=== PATIENT | female | born 1940 | race Hispanic/Latino ===

== ENCOUNTER 2018-02-26 07:15 | Day surgery (SDC) | payer MEDICARE ==
--- OUTSIDE RECORDS SUMMARY | 2018-02-26 07:28 | XMS REPORT | Clinical Summary ---
:1940 Author Organization [facility] Address [address] [place] [address] Care Team Providers Name Role Phone Dionte Tomas MD Primary Care Provider Allergies No Known Allergies Current Medications Prescription Sig. Disp. Refills Start Date End Date Status levothyroxine Take 175 mcg by Active (SYNTHROID, LEVOXYL) 175 mouth every mcg tablet morning. metFORMIN XR Take 500 mg by Active (GLUCOPHAGE-XR) 500 mg mouth daily 24 hr tablet before dinner. pantoprazole (PROTONIX) Take 40 mg by Active 40 MG EC tablet mouth daily. losartan-hydrochlorothia Take 1 tablet Active zide (HYZAAR) 100-25 mg by mouth daily. per tablet verapamil extended Take 200 mg by Active release (VERELAN PM) 200 mouth daily. At mg capsule, 24 hr ER 6pm pellet CT ER capsule sertraline (ZOLOFT) 100 Take 100 mg by Active MG tablet mouth daily. cyanocobalamin 500 MCG Take 500 mcg by Active tablet mouth daily. potassium chloride Take 8 mEq by Active (MICRO-K) 8 mEq CR mouth daily. At capsule 6pm estradiol (ESTRACE) 0.5 Take 0.5 mg by Active MG tablet mouth daily. At 6pm loperamide (IMODIUM) 2 Take 1 capsule 30 capsule 0 08/18/2017 mg capsule (2 mg total) by 8 mouth 4 (four) times a day as needed for diarrhea for up to 15 days. albuterol (PROAIR Inhale 1-2 1 Inhaler 0 08/18/2017 HFA,PROVENTIL puffs every 6 8 HFA,VENTOLIN HFA) 90 (six) hours as mcg/actuation inhaler needed for wheezing for up to 30 days. methylPREDNISolone follow package 21 tablet 0 08/18/2017 (MEDROL DOSEPAK) 4 mg directions 8 tablet Active Problems Not on file Encounters Date Type Specialty Care Team Description 08/18/2017 Emergency Emergency Medicine Josh Woodson Recinos, Viral syndrome ( Primary Dx); Diarrhea, unspecified type after 02/25/2017 Social History Tobacco Use Types Packs/Day Years Used Date Never Smoker Alcohol Use Drinks/Week oz/Week Comments No Sex Assigned at Date Recorded Not on file Last Filed Vital Signs Vital Sign Reading Time Taken Blood Pressure 142/66 08/18/2017 5:15 PM CLINICAL RADIOLOGIST Pulse 100 08/18/2017 5:15 PM CLINICAL RADIOLOGIST Temperature 36.7 C (98 F) 08/18/2017 12:35 PM CLINICAL RADIOLOGIST Respiratory Rate 18 08/18/2017 5:15 PM CLINICAL RADIOLOGIST Oxygen Saturation 98% 08/18/2017 5:15 PM CLINICAL RADIOLOGIST Inhaled Oxygen Concentration - - Weight - - Height 165.1 cm (5' 5") 08/18/2017 12:38 PM CLINICAL RADIOLOGIST Body Mass Index - - Plan of Treatment Health Maintenance Due Date Last Done Comments SHINGRIX VACCINE (#1) 1990 ZOSTER VACCINE 2000 PNEUMOCOCCAL POLYSACCHARIDE VACCINE AGE 65 AND OVER 2005 PNEUMOCOCCAL-13 2005 INFLUENZA VACCINE 02/28/2018 Procedures Procedure Name Priority Date/Time Associated Comments Diagnosis XR CHEST 2 VW STAT 08/18/2017 3:06 Results for this PM CLINICAL RADIOLOGIST procedure are in the results section. BLOOD CULTURE, Routine 08/18/2017 2:48 Results for this AEROBIC & ANAEROBIC PM CLINICAL RADIOLOGIST procedure are in the results section. RESPIRATORY PATHOGEN Routine 08/18/2017 2:47 Results for this PANEL PM CLINICAL RADIOLOGIST procedure are in the results section. INFLUENZA ANTIGEN Routine 08/18/2017 2:47 Results for this PM CLINICAL RADIOLOGIST procedure are in the results section. BLOOD CULTURE, Routine 08/18/2017 2:45 Results for this AEROBIC & ANAEROBIC PM CLINICAL RADIOLOGIST procedure are in the results section. ESTIMATED GFR STAT 08/18/2017 2:18 Results for this PM CLINICAL RADIOLOGIST procedure are in the results section. LIPASE LEVEL STAT 08/18/2017 2:18 Results for this PM CLINICAL RADIOLOGIST procedure are in the results section. AMYLASE LEVEL STAT 08/18/2017 2:18 Results for this PM CLINICAL RADIOLOGIST procedure are in the results section. LACTIC ACID LEVEL, STAT 08/18/2017 2:18 Results for this SEPSIS - NOW AND PM CLINICAL RADIOLOGIST procedure are in REPEAT 2X EVERY 3 the results HOURS section. HEPATIC FUNCTION STAT 08/18/2017 2:18 Results for this PANEL PM CLINICAL RADIOLOGIST procedure are in the results section. BASIC METABOLIC PANEL STAT 08/18/2017 2:18 Results for this PM CLINICAL RADIOLOGIST procedure are in the results section. HC COMPLETE BLD COUNT STAT 08/18/2017 2:18 Results for this W/AUTO DIFF PM CLINICAL RADIOLOGIST procedure are in the results section. after 02/25/2017 Results XR Chest 2 Vw (08/18/2017 3:06 PM) Narrative Performed At EXAMINATION:[facility] CLINICAL HISTORY:Cough, Fever COMPARISON:11/12/2001 TECHNIQUE: Frontal and lateral views of the chest obtained. IMPRESSION: Cardiac silhouette upper normal. Pulmonary vasculature within normal limits. Descending thoracic aorta slightly tortuous. Lungs and pleural spaces appear clear [facility]-[id number] Procedure Note Interface, Radiology Results Incoming - 08/18/2017 3:12 PM CLINICAL RADIOLOGIST EXAMINATION: XR CHEST 2 VW CLINICAL HISTORY: Cough, Fever COMPARISON: 11/12/2001 TECHNIQUE: Frontal and lateral views of the chest obtained. IMPRESSION: Cardiac silhouette upper normal. Pulmonary vasculature within normal limits. Descending thoracic aorta slightly tortuous. Lungs and pleural spaces appear clear [facility]-[id number] Performing Organization Address [facility] Phone Number [facility] [address] [place] [address] Blood culture, aerobic & anaerobic (08/18/2017 2:48 PM)Only the most recent of2 resultswithin the time period is included. Blood culture isolate No growth after 5 days of incubation. [facility] DEPARTMENT OF Comment: PATHOLOGY AND GENOMIC Specimen Information MEDICINE Specimen Source: Blood Specimen Site: Hand, left Specimen Blood - Hand, left Performing Organization Address City/[facility]/Zipcode Phone Number [facility] DEPARTMENT OF PATHOLOGY AND [address] [place] [phone] GENOMIC MEDICINE Respiratory pathogen panel (08/18/2017 2:47 PM) Respiratory pathogen Negative for all pathogens tested: [facility] DEPARTMENT OF panel Negative for Adenovirus PATHOLOGY AND GENOMIC Negative for Coronavirus HKU1 MEDICINE Negative for Coronavirus NL63 Negative for Coronavirus 229E Negative for Coronavirus OC43 Negative for Human Metapneumovirus Negative for Rhinovirus/Enterovirus Negative for Influenza A Negative for Influenza A/H1 Negative for Influenza A/H3 Negative for Influenza A/H1-2009 Negative for Influenza B Negative for Parainfluenza Virus 1 Negative for Parainfluenza Virus 2 Negative for Parainfluenza Virus 3 Negative for Parainfluenza Virus 4 Negative for Respiratory Syncytial Virus Negative for Bordetella pertussis Negative for Chlamydophila pneumoniae Negative for Mycoplasma pneumoniae This real-time PCR assay detects the presence of nucleic acids (RNA or DNA) for the respiratory pathogens listed. A result of "Not-detected" does not exclude the possibility of the presence of one or more pathogens at concentrations less than the detectable limits of the assay. Comment: Specimen Information Specimen Source: Nares Specimen Site: Right Specimen Nares - Right Performing Organization Address [facility] Phone Number [facility] DEPARTMENT OF PATHOLOGY AND [address] [place] [address] Influenza antigen (08/18/2017 2:47 PM) Influenza antigen Negative for Influenza A/B antigen. [facility] DEPARTMENT OF PATHOLOGY Comment: AND [employer] MEDICINE Specimen Information Specimen Source: Nares Specimen Site: Right Specimen Nares - Right Performing Organization Address [facility] Phone Number [facility] DEPARTMENT OF PATHOLOGY AND [address] [place] [address] Lactic acid level, SEPSIS - Now and repeat 2x every 3 hours (08/18/2017 2:18 PM ) Lactic acid 1.3 0.5 - 2.2 mmol/L [facility] DEPARTMENT OF PATHOLOGY AND GENOMIC MEDICINE Specimen Plasma specimen Performing Organization Address [facility] Phone Number [facility] DEPARTMENT OF PATHOLOGY AND [address] [place] [address] Estimated GFR (08/18/2017 2:18 PM) GFR Non Af Amer 61 mL/min/1.73 m2 [facility] DEPARTMENT OF PATHOLOGY AND GENOMIC MEDICINE GFR Af Amer 74 mL/min/1.73 m2 [facility] DEPARTMENT OF Comment: PATHOLOGY AND GENOMIC Chronic kidney disease: <60 mL/min/1.73m2 MEDICINE Kidney failure: <15 mL/min/1.73m2 The estimated GFR is calculated from the IDMS-traceable Modification of Diet in Renal Disease Equation. The accuracy of the calculation is poor when the creatinine is normal. Calculated values >90 mL/min/1.73m2 are not reported. This equation has not been validated in children (<18 years), women, the elderly (>70 years), or ethnic groups other than Caucasians and Americans. Specimen Plasma specimen Performing Organization Address City/State/Zipcode Phone Number [facility] DEPARTMENT OF PATHOLOGY AND [address] [place] [address] GENOMIC MEDICINE CBC with platelet and differential (08/18/2017 2:18 PM) WBC 6.83 4.50 - 11.00 k/uL [facility] DEPARTMENT OF PATHOLOGY AND GENOMIC MEDICINE RBC 4.38 4.20 - 5.50 m/uL [facility] DEPARTMENT OF PATHOLOGY AND GENOMIC MEDICINE HGB 11.2 (L) 12.0 - 16.0 g/dL [facility] DEPARTMENT OF PATHOLOGY AND GENOMIC MEDICINE HCT 34.1 (L) 37.0 - 47.0 % [facility] DEPARTMENT OF PATHOLOGY AND GENOMIC MEDICINE MCV 77.9 (L) 82.0 - 100.0 fL [facility] DEPARTMENT OF PATHOLOGY AND GENOMIC MEDICINE MCH 25.6 (L) 27.0 - 34.0 pg [facility] DEPARTMENT OF PATHOLOGY AND GENOMIC MEDICINE MCHC 32.8 31.0 - 37.0 g/dL [facility] DEPARTMENT OF PATHOLOGY AND GENOMIC MEDICINE RDW - SD 41.3 37.0 - 55.0 fL [facility] DEPARTMENT OF PATHOLOGY AND GENOMIC MEDICINE MPV 9.6 8.8 - 13.2 fL [facility] DEPARTMENT OF PATHOLOGY AND GENOMIC MEDICINE Platelet count 155 150 - 400 k/uL [facility] DEPARTMENT OF PATHOLOGY AND GENOMIC MEDICINE Nucleated RBC 0.00 /100 WBC [facility] DEPARTMENT OF PATHOLOGY AND GENOMIC MEDICINE Neutrophils 65.3 39.0 - 69.0 % [facility] DEPARTMENT OF PATHOLOGY AND GENOMIC MEDICINE Lymphocytes 28.0 25.0 - 45.0 % [facility] DEPARTMENT OF PATHOLOGY AND GENOMIC MEDICINE Monocytes 5.0 0.0 - 10.0 % [facility] DEPARTMENT OF PATHOLOGY AND GENOMIC MEDICINE Eosinophils 0.4 0.0 - 5.0 % [facility] DEPARTMENT OF PATHOLOGY AND GENOMIC MEDICINE Basophils 0.3 0.0 - 1.0 % [facility] DEPARTMENT OF PATHOLOGY AND GENOMIC MEDICINE Immature granulocytes 1.0Comment: 0.0 - 1.0 % [facility] DEPARTMENT OF "Immature PATHOLOGY AND GENOMIC granulocytes" MEDICINE (promyelocytes, myelocytes, metamyelocytes) Specimen Blood Performing Organization Address City/State/Zipcode Phone Number [facility] DEPARTMENT OF PATHOLOGY AND [address] [place] [phone] [facility] MEDICINE Lipase level (08/18/2017 2:18 PM) Lipase 24 13 - 60 U/L [facility] DEPARTMENT OF PATHOLOGY AND GENOMIC MEDICINE Specimen Plasma specimen Performing Organization Address [facility] Phone Number [facility] DEPARTMENT OF PATHOLOGY AND [address] [place] [id number] [place] [address] Amylase level (08/18/2017 2:18 PM) Amylase 28 28 - 100 U/L [facility] DEPARTMENT OF PATHOLOGY AND GENOMIC MEDICINE Specimen Plasma specimen Performing Organization Address [facility] Phone Number [facility] DEPARTMENT OF PATHOLOGY AND [address] [place] [address] Hepatic function panel (08/18/2017 2:18 PM) Albumin 3.9 3.5 - 5.0 g/dL [facility] DEPARTMENT OF PATHOLOGY AND GENOMIC MEDICINE Total bilirubin 0.6 0.0 - 1.2 mg/dL [facility] DEPARTMENT OF PATHOLOGY AND GENOMIC MEDICINE Bilirubin direct <0.2 0.0 - 0.3 mg/dL [facility] DEPARTMENT OF PATHOLOGY AND GENOMIC MEDICINE Alkaline phosphatase 61 35 - 104 U/L [facility] DEPARTMENT OF PATHOLOGY AND GENOMIC MEDICINE Protein 8.3 6.3 - 8.3 g/dL [facility] DEPARTMENT OF Comment: PATHOLOGY AND GENOMIC 4.6-7.0 g/dL MEDICINE 1 week 4.4-7.6 g/dL 7 months-1year5.1-7.3 g/dL 1-2 years5.6-7.5 g/dL >3 years6.0-8.0 g/dL 18-150 6.3-8.3 g/dL ALT 26 5 - 50 U/L [facility] DEPARTMENT OF PATHOLOGY AND GENOMIC MEDICINE AST 33 10 - 35 U/L [facility] DEPARTMENT OF PATHOLOGY AND GENOMIC MEDICINE Specimen Plasma specimen Performing Organization Address [facility] Phone Number [facility] DEPARTMENT OF PATHOLOGY AND [address] [place] [address] Basic metabolic panel (08/18/2017 2:18 PM) Sodium 142 135 - 148 mEq/L [facility] DEPARTMENT OF PATHOLOGY AND GENOMIC MEDICINE Potassium 3.2 (L) 3.5 - 5.0 mEq/L [facility] DEPARTMENT OF PATHOLOGY AND GENOMIC MEDICINE Chloride 100 98 - 112 mEq/L [facility] DEPARTMENT OF PATHOLOGY AND GENOMIC MEDICINE CO2 23 (L) 24 - 31 mEq/L [facility] DEPARTMENT OF PATHOLOGY AND GENOMIC MEDICINE Anion gap 19 (H) 7 - 15 mEq/L [facility] DEPARTMENT OF PATHOLOGY Comment: AND GENOMIC [facility] Starting from October , anion gap calculation no longer incorporates potassium. Please note the change. BUN 14 8 - 23 mg/dL [facility] DEPARTMENT OF PATHOLOGY AND GENOMIC MEDICINE Creatinine 0.9 0.5 - 0.9 mg/dL [facility] DEPARTMENT OF PATHOLOGY AND GENOMIC MEDICINE Glucose 133 (H) 65 - 99 mg/dL [facility] DEPARTMENT OF PATHOLOGY AND GENOMIC MEDICINE Calcium 9.0 8.8 - 10.2 mg/dL [facility] DEPARTMENT OF PATHOLOGY AND GENOMIC MEDICINE Specimen Plasma specimen Performing Organization Address City/State/Zipcode Phone Number [facility] DEPARTMENT OF PATHOLOGY AND [address] [place] [address] [employer] [facility] after 02/25/2017 Insurance Payer Benefit Plan / Group Subscriber ID Type Phone Address [facility] MEDICARE AARP MEDICARE COMPLETE MCR xxxxxxxxx O
[2018-02-26] MEDS ORDERED: NA CHLORIDE 0.9% 500 ML ONE (07:42)
[2018-02-26] MEDS ORDERED: BUPIVACAINE 0.25% PF 10 ML VIAL ONE (07:43)
[2018-02-26] MEDS ORDERED: CYCLOPENTOLATE 1% OPTH 2 ML ONE (07:43)
[2018-02-26] MEDS ORDERED: LIDOCAINE 2% MPF 5 ML VIAL ONE (07:43)
[2018-02-26] MEDS ORDERED: PHENYLEPHRINE 10% OPTH 5ML ONE (07:43)
[2018-02-26] MEDS ORDERED: TETRACAINE HCL 0.5% 2ML OPTH ONE (07:44)
[2018-02-26] MEDS ORDERED: LIDOCAINE HCL/PF 3.5% OPTH GEL ONE (07:44)
[2018-02-26] MEDS ORDERED: NS 0.9% VIAL 10 ML ONE (08:05)
[2018-02-26] MEDS ORDERED: MOXIFLOXACIN HCL 10 DROPS/ML **OR USE OPTH ONE (08:06)
[2018-02-26] MEDS ORDERED: BALANCED SALT IRRIG PLAIN 500 ML BTL IRR ONE (08:06)
[2018-02-26] MEDS ORDERED: EPINEPHRINE/PF 1 MG/ML AMP ONE (08:06)
[2018-02-26] MEDS ORDERED: LIDOCAINE 1% MPF 2 ML AMPULE ONE (08:06)
[2018-02-26] MEDS ORDERED: DUOVISC 1 KIT OPTH ONE (08:06)
[2018-02-26] MEDS ORDERED: PHENYLEPHRINE 10% OPTH 5ML OPTH ONE ×2 (08:24→08:32)
[2018-02-26] MEDS ORDERED: CYCLOPENTOLATE 1% OPTH 2 ML OPTH ONE ×2 (08:24→08:32)
[2018-02-26] MEDS ORDERED: FENTANYL CITR 100 MCG/2 ML ONE (08:49)
[2018-02-26] MEDS ORDERED: MIDAZOLAM HCL 2 MG/2 ML INJ ONE (08:49)
--- NOTE | 2018-02-26 09:59 | P.BOP ---
Preoperative diagnosis: Nuclear sclerotic cataract OD Postoperative diagnosis: Same Primary procedure: Phacoemulsification with IOL OD Estimated blood loss: None Anesthesia: Local (Topical with anesthesia for cataract surgery) Complications: None Implants: [id number] +23.0 Transferred to: Other (Day surgery) Condition: Good
--- NOTE | 2018-02-26 14:19 | OP ---
Date of Procedure: 02/26/2018 Surgeon: Tea Viera MD Anesthesiologist: Parviz Rolon CRNA. Preoperative Diagnosis: Nuclear sclerotic cataract, right eye. Operation Performed: Phacoemulsification with intraocular lens implant, right eye. Anesthesia: Per cataract surgery. Complications: None. Description Of Procedure: In the operating room the patient was prepped and draped in the usual ster ile fashion for ophthalmic surgery. A lid speculum was placed in the right eye. Two paracentesis si claudette were made superiorly and inferiorly in the limbal cornea. Viscoat was placed in the anterior fidencio mber and a crescent blade was used to make a corneal groove and tunnel, and a keratome was used to en ter the anterior chamber. Provisc was placed in the anterior chamber and a 360 degree capsulotomy wa s performed with a cystitome. The lens was hydrodissected with BSS and rotated freely. The lens was removed with a stop and chop technique. 10.04 phaco CDE was used to remove the lens. Residual david ex was removed with the irrigation and aspiration. Provisc was placed in the capsular bag. A ZCB00 +23.0 lens was placed in the capsular bag without complications. Irrigation and aspiration was used to remove residual viscoelastic. The paracentesis sites were hydrated with BSS. The wound and parac entesis sites were inspected and found to be watertight. Vigamox 0.07 cc was placed intracamerally a t the end of the procedure. The eye was irrigated with balanced salt solution. The eye was patched with a soft cotton patch and Bridges metal shield. The patient was returned to day surgery in good condition. Comments: Akten was placed in the eye in day surgery and irrigated out of the eye with BSS in the OR . Preservative free 1% lidocaine was placed in the anterior chamber prior to viscoat. Discharge Instructions: Ms. Constantino is discharged to home with good condition and is to follow up with Dr. Viera in the morning. TONI/CONNOR Voice ID: [id number] Report ID: [id number]
== END 2018-02-26 10:44 | disposition home or self-care (01) ==
LOC: OR 07:15
PROVIDERS: ATTEND Ophthalmology Retina Specialist
PROC: 08RJ3JZ Replacement of Right Lens with Synthetic Substitute, Percutaneous Approach (ICD-10-PCS; principal; 2018-02-26 09:00)
DX: H25.11 Age-related nuclear cataract, right eye (principal); I10 Essential (primary) hypertension; E03.9 Hypothyroidism, unspecified; E11.36 Type 2 diabetes mellitus with diabetic cataract; Z79.84 Long term (current) use of oral hypoglycemic drugs
CPT/HCPCS: 36415; 66984; 82962; 84132; J0171; J2001; J2250; J3010

== ENCOUNTER 2018-05-24 11:38 | Emergency (ER) | payer MEDICARE ==
--- OUTSIDE RECORDS SUMMARY | 2018-05-24 11:40 | XMS REPORT | Clinical Summary ---
:1940 Author Organization [facility] Address [address] [place] [address] Care Team Providers Name Role Phone Dionte [...] ( Primary Dx); Diarrhea, unspecified type after 05/23/2017 Social History Tobacco Use Types Packs/Day Years Used Date Never Smoker Alcohol Use Drinks/Week oz/Week Comments No Sex Assigned at Date Recorded Not on file Last Filed Vital Signs Vital Sign Reading Time Taken Blood Pressure 142/66 08/18/2017 5:15 PM BOOKKEEPING CLERK Pulse 100 08/18/2017 5:15 PM BOOKKEEPING CLERK Temperature 36.7 C (98 F) 08/18/2017 12:35 PM BOOKKEEPING CLERK Respiratory Rate 18 08/18/2017 5:15 PM BOOKKEEPING CLERK Oxygen Saturation 98% 08/18/2017 5:15 PM BOOKKEEPING CLERK Inhaled Oxygen Concentration - - Weight - - Height 165.1 cm (5' 5") 08/18/2017 12:38 PM BOOKKEEPING CLERK Body Mass Index - - Plan of Treatment Health Maintenance Due Date Last Done Comments SHINGRIX VACCINE (#1) 1990 ZOSTER VACCINE 2000 PNEUMOCOCCAL POLYSACCHARIDE VACCINE AGE 65 AND OVER 2005 PNEUMOCOCCAL-13 2005 INFLUENZA VACCINE 02/28/2018 Procedures Procedure Name Priority Date/Time Associated Comments Diagnosis XR CHEST 2 VW STAT 08/18/2017 3:06 Results for this PM BOOKKEEPING CLERK procedure are in the results section. BLOOD CULTURE, Routine 08/18/2017 2:48 Results for this AEROBIC & ANAEROBIC PM [employer]KEEPING CLERK procedure are in the results section. RESPIRATORY PATHOGEN Routine 08/18/2017 2:47 Results for this PANEL PM BOOKKEEPING CLERK procedure are in the results section. INFLUENZA ANTIGEN Routine 08/18/2017 2:47 Results for this PM [employer]OOKKEEPING CLERK procedure are in the results section. BLOOD CULTURE, Routine 08/18/2017 2:45 Results for this AEROBIC & ANAEROBIC PM BOOKKEEPING CLERK procedure are in the results section. ZZESTIMATED GFR STAT 08/18/2017 2:18 Results for this PM [employer]OOKKEEPING CLERK procedure are in the results section. LIPASE LEVEL STAT 08/18/2017 2:18 Results for this PM [employer]OOKKEEPING CLERK procedure are in the results section. AMYLASE LEVEL STAT 08/18/2017 2:18 Results for this PM BOOKKEEPING CLERK procedure are in the results section. LACTIC ACID LEVEL, STAT 08/18/2017 2:18 Results for this SEPSIS - NOW AND PM BOOKKEEPING CLERK procedure are in REPEAT 2X EVERY 3 the results HOURS section. HEPATIC FUNCTION STAT 08/18/2017 2:18 Results for this PANEL PM BOOKKEEPING CLERK procedure are in the results section. BASIC METABOLIC PANEL STAT 08/18/2017 2:18 Results for this PM BOOKKEEPING CLERK procedure are in the results section. HC COMPLETE BLD COUNT STAT 08/18/2017 2:18 Results for this W/AUTO DIFF PM BOOKKEEPING CLERK procedure are in the results section. after 05/23/2017 Results XR Chest 2 Vw (08/18/2017 3:06 PM) Narrative Performed At EXAMINATION:XR CHEST 2 VW RADIANT CLINICAL HISTORY:Cough, Fever COMPARISON:11/12/2001 TECHNIQUE: Frontal and lateral views of the chest obtained. IMPRESSION: Cardiac silhouette upper normal. Pulmonary vasculature within normal limits. Descending thoracic aorta slightly tortuous. Lungs and pleural spaces appear clear [facility]-[id number] Procedure Note Interface, Radiology Results Incoming - 08/18/2017 3:12 PM BOOKKEEPING CLERK EXAMINATION: XR CHEST 2 VW CLINICAL HISTORY: Cough, Fever COMPARISON: 11/12/2001 TECHNIQUE: Frontal and lateral views of the chest obtained. IMPRESSION: Cardiac silhouette upper normal. Pulmonary vasculature within normal limits. Descending thoracic aorta slightly tortuous. Lungs and pleural spaces appear clear [facility]-[id number] Performing Organization Address City/[facility] Phone Number [facility] [address] [place] [address] Blood culture, aerobic & anaerobic (08/18/2017 2:48 PM)Only the most recent of2 resultswithin the time period is included. Blood culture isolate No growth after 5 days of incubation. [facility] DEPARTMENT OF Comment: PATHOLOGY AND GENOMIC Specimen Information MEDICINE Specimen Source: Blood Specimen Site: Hand, left Specimen Blood - Hand, left Performing Organization Address City/[facility]/Zipcode Phone Number [facility] DEPARTMENT OF PATHOLOGY AND [address] [place] [id number] GENOMIC MEDICINE Respiratory pathogen panel (08/18/2017 2:47 PM) Respiratory pathogen Negative for all pathogens tested: [facility] DEPARTMENT OF panel Negative for Adenovirus [...] Specimen Nares - Right Performing Organization Address [facility] Phone Number [facility] DEPARTMENT OF PATHOLOGY AND [address] [place] [address] Influenza antigen (08/18/2017 2:47 PM) Influenza antigen Negative for Influenza A/B antigen. [facility] DEPARTMENT OF PATHOLOGY Comment: AND [employer] MEDICINE Specimen Information Specimen Source: Nares Specimen Site: Right Specimen Nares - Right Performing Organization Address [facility] Phone Number [facility] DEPARTMENT OF PATHOLOGY AND [address] [place] [address] Lactic acid level, SEPSIS - Now and repeat 2x every 3 hours (08/18/2017 2:18 PM ) Lactic acid 1.3 0.5 - 2.2 mmol/L [facility] DEPARTMENT OF PATHOLOGY AND [facility] Specimen Plasma specimen Performing Organization Address [facility] Phone [place] [facility] DEPARTMENT OF PATHOLOGY AND [address] [place] [address] Estimated GFR (08/18/2017 2:18 PM) GFR Non Af Amer 61 mL/min/1.73 m2 [facility] DEPARTMENT OF PATHOLOGY AND GENOMIC MEDICINE GFR Af Amer 74 mL/min/1.73 m2 [facility] DEPARTMENT OF Comment: PATHOLOGY AND GENOMIC [...] specimen Performing Organization Address City/State/Zipcode Phone Number [facility] DEPARTMENT OF PATHOLOGY AND [address] [place] [phone] GENOMIC MEDICINE CBC with platelet and differential (08/18/2017 2:18 PM) WBC 6.83 4.50 - 11.00 k/uL [facility] DEPARTMENT OF PATHOLOGY AND GENOMIC MEDICINE RBC 4.38 4.20 - 5.50 m/uL [facility] DEPARTMENT OF PATHOLOGY AND GENOMIC MEDICINE HGB 11.2 (L) 12.0 - 16.0 g/dL [facility] DEPARTMENT OF PATHOLOGY AND GENOMIC MEDICINE HCT 34.1 (L) 37.0 - 47.0 % [facility] DEPARTMENT OF PATHOLOGY AND GENOMIC MEDICINE MCV 77.9 (L) 82.0 - 100.0 fL [facility] DEPARTMENT OF PATHOLOGY AND GENOMIC MEDICINE MCH 25.6 (L) 27.0 - 34.0 pg [facility] DEPARTMENT OF PATHOLOGY AND GENOMIC MEDICINE MCHC 32.8 31.0 - 37.0 g/dL [facility] DEPARTMENT OF PATHOLOGY AND GENOMIC MEDICINE RDW - SD 41.3 37.0 - 55.0 fL [facility] DEPARTMENT OF PATHOLOGY AND GENOMIC MEDICINE MPV 9.6 8.8 - 13.2 fL [facility] DEPARTMENT OF PATHOLOGY AND GENOMIC MEDICINE Platelet count 155 150 - 400 k/uL [facility] DEPARTMENT OF PATHOLOGY AND GENOMIC MEDICINE Nucleated RBC 0.00 /100 WBC [facility] DEPARTMENT OF PATHOLOGY AND GENOMIC MEDICINE Neutrophils 65.3 39.0 - 69.0 % [facility] DEPARTMENT OF PATHOLOGY AND GENOMIC MEDICINE Lymphocytes 28.0 25.0 - 45.0 % [facility] DEPARTMENT OF PATHOLOGY AND GENOMIC MEDICINE Monocytes 5.0 0.0 - 10.0 % [facility] DEPARTMENT OF PATHOLOGY AND GENOMIC MEDICINE Eosinophils 0.4 0.0 - 5.0 % [facility] DEPARTMENT OF PATHOLOGY AND GENOMIC MEDICINE Basophils 0.3 0.0 - 1.0 % [facility] DEPARTMENT OF PATHOLOGY AND GENOMIC MEDICINE Immature granulocytes 1.0Comment: 0.0 - 1.0 % [facility] DEPARTMENT OF "Immature PATHOLOGY AND GENOMIC granulocytes" MEDICINE (promyelocytes, myelocytes, metamyelocytes) Specimen Blood Performing Organization Address City/State/Zipcode Phone Number [facility] DEPARTMENT OF PATHOLOGY AND [address] [place] [phone] [place] [address] MEDICINE Lipase level (08/18/2017 2:18 PM) Lipase 24 13 - 60 U/L [facility] DEPARTMENT OF PATHOLOGY AND GENOMIC MEDICINE Specimen Plasma specimen Performing Organization Address [facility] [place] Phone Number [facility] DEPARTMENT OF PATHOLOGY AND [address] [place] [phone] [place] [address] Amylase level (08/18/2017 2:18 PM) Amylase 28 28 - 100 U/L [facility] DEPARTMENT OF PATHOLOGY AND GENOMIC MEDICINE Specimen Plasma specimen Performing Organization Address [facility] [place] Phone Number [facility] DEPARTMENT OF PATHOLOGY AND [address] [place] [address] Hepatic function panel (08/18/2017 2:18 PM) Albumin 3.9 3.5 - 5.0 g/dL [facility] DEPARTMENT OF PATHOLOGY AND GENOMIC MEDICINE Total bilirubin 0.6 0.0 - 1.2 mg/dL [facility] DEPARTMENT OF PATHOLOGY AND GENOMIC MEDICINE Bilirubin direct <0.2 0.0 - 0.3 mg/dL [facility] DEPARTMENT OF PATHOLOGY AND GENOMIC MEDICINE Alkaline phosphatase 61 35 - 104 U/L [facility] DEPARTMENT OF PATHOLOGY AND GENOMIC MEDICINE Protein 8.3 6.3 - 8.3 g/dL [facility] DEPARTMENT OF Comment: PATHOLOGY AND GENOMIC 4.6-7.0 g/dL MEDICINE 1 week 4.4-7.6 g/dL 7 months-1year5.1-7.3 g/dL 1-2 years5.6-7.5 g/dL >3 years6.0-8.0 g/dL 18-150 6.3-8.3 g/dL ALT 26 5 - 50 U/L [facility] DEPARTMENT OF PATHOLOGY AND GENOMIC MEDICINE AST 33 10 - 35 U/L [facility] DEPARTMENT OF PATHOLOGY AND GENOMIC MEDICINE Specimen Plasma specimen Performing Organization Address [facility] [place] Phone Number [facility] DEPARTMENT OF PATHOLOGY AND [address] [place] [address] Basic metabolic panel (08/18/2017 2:18 PM) Sodium 142 135 - 148 mEq/L [facility] DEPARTMENT OF PATHOLOGY AND GENOMIC MEDICINE Potassium 3.2 (L) 3.5 - 5.0 mEq/L [facility] DEPARTMENT OF PATHOLOGY AND GENOMIC MEDICINE Chloride 100 98 - 112 mEq/L [facility] DEPARTMENT OF PATHOLOGY AND GENOMIC MEDICINE CO2 23 (L) 24 - 31 mEq/L [facility] DEPARTMENT OF PATHOLOGY AND GENOMIC MEDICINE Anion gap 19 (H) 7 - 15 mEq/L [facility] DEPARTMENT OF PATHOLOGY Comment: AND [facility] Starting from October , anion gap calculation no longer incorporates potassium. Please note the change. BUN 14 8 - 23 mg/dL [facility] DEPARTMENT OF PATHOLOGY AND GENOMIC MEDICINE Creatinine 0.9 0.5 - 0.9 mg/dL [facility] DEPARTMENT OF PATHOLOGY AND GENOMIC MEDICINE Glucose 133 (H) 65 - 99 mg/dL [facility] DEPARTMENT OF PATHOLOGY AND GENOMIC MEDICINE Calcium 9.0 8.8 - 10.2 mg/dL [facility] DEPARTMENT OF PATHOLOGY AND GENOMIC MEDICINE Specimen Plasma specimen Performing Organization Address City/State/Zipcode Phone Number [facility] DEPARTMENT OF PATHOLOGY AND [address] [place] [address] [employer] MEDICINE after 05/23/2017 Insurance Payer Benefit Plan / Group Subscriber ID Type Phone Address [facility] MEDICARE AARP MEDICARE COMPLETE [facility] xxxxxxxxx O
[2018-05-24] MEDS ORDERED: KETOROLAC 30 MG/ML INJ ONE (12:45)
[2018-05-24] MEDS ORDERED: HYDROCODONE/APAP 10/325 TAB ONE (12:45)
--- NOTE | 2018-05-24 14:21 | RAD REPORT ---
EXAM DESCRIPTION: CT - Facial Bones W/ Mpr - 05/24/2018 1:54 pm CLINICAL HISTORY: Left-sided facial pain around the ear and mandible, diabetes COMPARISON: None. TECHNIQUE: Axial 2 millimeter thick images of the facial bones were obtained with sagittal and coron al reconstruction imaging. All CT scans are performed using dose optimization technique as appropriate and may include automated exposure control or mA/KV adjustment according to patient size. FINDINGS: Limited intracranial portion of the examination is unremarkable. No globe or orbital quinn nt abnormality. Mastoid air cells, middle here is and external auditory canals are clear. Very minima l mucosal thickening in the paranasal sinuses. No air-fluid level. Mild sclerotic changes to the righ t maxillary sinus robert indicates chronic sinusitis change. There is no significant mucosal thickenin g or air-fluid level in any paranasal sinus. Parotid and submandibular gland tissue is normal in size. Each parotid gland shows small areas of nod ularity sub centimeter in size. No one dominant nodular density. A few small nonspecific lymph nodes are present. No edematous/inflammatory stranding seen. No foreign body or air in the soft tissues. Each mandibular condyle shows flattening of the head. This is worse on the left where there is also s ome cortical thinning present. There is a more flattened contour to the glenoid on the left. Meniscus assessment is limited on this examination. IMPRESSION: Left greater than right degenerative changes are present at the temporomandibular joints . This is a potential source for periauricular pain symptoms. Small nonspecific nodules or lymph nodes seen within the bilateral parotid gland tissue. A few small nonspecific cervical lymph nodes are present symmetrically distributed left versus right.
--- NOTE | 2018-05-24 14:30 | EDPHYS ---
Physician Documentation [facility] Name: Torri Constantino Age: 77 yrs Sex: Female : 1940 Arrival Date: 05/24/2018 Time: 11:40 Bed 11 Private MD: Dionte Tomas ED Physician Davide Gallegos HPI: 05/24 14:16 This 77 yrs old Female presents to ER via Ambulatory with complaints of Facial jr8 Pain. 14:16 Patient woke up with extreme pain to left TMJ region this AM. Stated that she is having jr8 a hard time opening her jaw or moving it side to side. Radiates to ear and down face. Denies trauma. Has had popping to both sides of jaw in past. Denies any other symptoms . Severity of symptoms: At their worst the symptoms were moderate in the emergency department the symptoms are unchanged. The patient has not experienced similar symptoms in the past. The patient has not recently seen a physician. Historical: - Allergies: 11:48 No Known Allergies; aj1 - Home Meds: 11:48 estradiol 0.5 mg Oral tab 1 tab once daily [Active]; levothyroxine 175 mcg tab 1 tab aj1 once daily [Active]; losartan-hydrochlorothiazide 100-25 mg Oral tab 1 tab once daily [Active]; pantoprazole 40 mg Oral TbEC 1 tab once daily [Active]; metformin 500 mg Oral tab 1 tab daily [Active]; potassium chloride 8 mEq Oral cpER 1 cap once daily [Active]; sertraline 100 mg Oral tab 1 tab once daily [Active]; verapamil 200 mg Oral CPCT 1 cap once daily [Active]; vitamin B53-jwrpo acid 500-400 mcg Oral tab daily [Active]; - PMHx: 11:48 Diabetes - NIDDM; Hyperlipidemia; Hypertension; Hypothyroidism; aj1 - Immunization history:: Flu vaccine is up to date. - Social history:: Smoking status: Patient/guardian denies using tobacco. - Ebola Screening: : Patient denies travel to an Ebola-affected area in the 21 days before illness onset. ROS: 14:16 Eyes: Negative for injury, pain, redness, and discharge, ENT: Negative for injury, jr8 pain, and discharge, Neck: Negative for injury, pain, and swelling, Cardiovascular: Negative for chest pain, palpitations, and edema, Respiratory: Negative for shortness of breath, cough, wheezing, and pleuritic chest pain, Abdomen/GI: Negative for abdominal pain, nausea, vomiting, diarrhea, and constipation, Back: Negative for injury and pain, MS/Extremity: Negative for injury and deformity, Skin: Negative for injury, rash, and discoloration, Neuro: Negative for headache, weakness, numbness, tingling, and seizure. Exam: 14:16 Eyes: Pupils equal round and reactive to light, extra-ocular motions intact. Lids and jr8 lashes normal. Conjunctiva and sclera are non-icteric and not injected. Cornea within normal limits. Periorbital areas with no swelling, redness, or edema. ENT: Nares patent. No nasal discharge, no septal abnormalities noted. Tympanic membranes are normal and external auditory canals are clear. Oropharynx with no redness, swelling, or masses, exudates, or evidence of obstruction, uvula midline. Mucous membranes moist. Neck: Trachea midline, no thyromegaly or masses palpated, and no cervical lymphadenopathy. Supple, full range of motion without nuchal rigidity, or vertebral point tenderness. No Meningismus. Cardiovascular: Regular rate and rhythm with a normal S1 and S2. No gallops, murmurs, or rubs. Normal PMI, no JVD. No pulse deficits. Respiratory: Lungs have equal breath sounds bilaterally, clear to auscultation and percussion. No rales, rhonchi or wheezes noted. No increased work of breathing, no retractions or nasal flaring. Abdomen/GI: Soft, non-tender, with normal bowel sounds. No distension or tympany. No guarding or rebound. No evidence of tenderness throughout. Back: No spinal tenderness. No costovertebral tenderness. Full range of motion. Skin: Warm, dry with normal turgor. Normal color with no rashes, no lesions, and no evidence of cellulitis. MS/ Extremity: Pulses equal, no cyanosis. Neurovascular intact. Full, normal range of motion. Neuro: Awake and alert, GCS 15, oriented to person, place, time, and situation. Cranial nerves II-XII grossly intact. Motor strength 5/5 in all extremities. Sensory grossly intact. Cerebellar exam normal. Normal gait. 14:16 Head/face: Noted is tenderness, that is moderate, of the Left TMJ. Vital Signs: 11:48 BP 186 / 79; Pulse 85; Resp 18; Temp 96.9; Pulse Ox 96% on R/A; Weight 99.79 kg (R); aj1 Height 5 ft. 5 in. (165.10 cm) (R); Pain 10/10; 13:00 BP 172 / 74; Pulse 82; Resp 15; Pulse Ox 100% on R/A; Pain 6/10; hb 14:30 BP 143 / 66; Pulse 78; Resp 16; Pulse Ox 100% on R/A; Pain 4/10; hb 11:48 Body Mass Index 36.61 (99.79 kg, 165.10 cm) aj1 MDM: 11:51 Patient medically screened. jr8 14:28 Differential Diagnosis Trigeminal Neuralgia, TMJ arthritis, TMJ dislocation, Dental jr8 pain/abscess, parotiditis, otitis externa, otitis media, herpes zoster, trauma/fracture, cellulitis . Data reviewed: vital signs, nurses notes, radiologic studies, CT scan. Data interpreted: Pulse oximetry: on room air is 100 %. Interpretation: normal. Counseling: I had a detailed discussion with the patient and/or guardian regarding: the historical points, exam findings, and any diagnostic results supporting the discharge/admit diagnosis, radiology results, the need for outpatient follow up, an ENT specialist, to return to the emergency department if symptoms worsen or persist or if there are any questions or concerns that arise at home. Response to treatment: the patient's symptoms have markedly improved after treatment. 05/24 13:41 Order name: Facial Bones W/ Mpr; Complete Time: 14:23 EDMS Administered Medications: 12:45 Drug: TORadol 60 mg Route: IM; Site: left gluteus; hb 12:46 Drug: Tamaroa 10 mg-325 mg 1 tabs Route: PO; hb Disposition: 16:07 Co-signature as Attending Physician, Davide Gallegos MD. rn Disposition: 05/24/18 14:30 Discharged to Home. Impression: Temporomandibular joint disorder, unspecified. - Condition is Stable. - Discharge Instructions: Temporomandibular Joint Syndrome. - Prescriptions for Ibuprofen 800 mg Oral Tablet - take 1 tablet by ORAL route every 12 hours As needed take with food; 20 tablet. Tylenol- Codeine #3 300-30 mg Oral Tablet - take 2 tablet by ORAL route every 6 hours As needed; 30 tablet. - Medication Reconciliation Form, Thank You Letter, Antibiotic Education, Prescription Opioid Use form. - Follow up: Ciara Hawthorne MD; When: 1 week; Reason: Recheck today's complaints, Continuance of care, Re-evaluation by your physician. - Problem is new. - Symptoms have improved. Signatures: Dispatcher [employer] EDGenie Pride RN RN aj1 Davide Gallegos MD MD rn Roszak, Josh, PA PA jr8 Ramandeep Lazo RN RN hb Corrections: (The following items were deleted from the chart) 14:54 14:30 05/24/2018 14:30 Discharged to Home. Impression: Temporomandibular joint hb disorder, unspecified. Condition is Stable. Forms are Medication Reconciliation Form, Thank You Letter, Antibiotic Education, Prescription Opioid Use. Follow up: Ciara Hawthorne; When: 1 week; Reason: Recheck today's complaints, Continuance of care, Re-evaluation by your physician. Problem is new. Symptoms have improved. jr8
--- NOTE | 2018-05-24 14:30 | ER ---
Nurse's Notes [facility] Name: Torri Constantino Age: 77 yrs Sex: Female : 1940 Arrival Date: 05/24/2018 Time: 11:40 Bed 11 Private MD: Dionte Tomas Diagnosis: Temporomandibular joint disorder, unspecified Presentation: 05/24 11:44 Presenting complaint: Child states: Left ear pain that radiates into her jaw since aj1 yesterday. Denies fever. Transition of care: patient was not received from another setting of care. Onset of symptoms was May 23, 2018. Risk Assessment: Do you want to hurt yourself or someone else? Patient reports no desire to harm self or others. Initial Sepsis Screen: Does the patient meet any 2 criteria? No. Patient's initial sepsis screen is negative. Does the patient have a suspected source of infection? No. Patient's initial sepsis screen is negative. Care prior to arrival: None. 11:44 Method Of Arrival: Ambulatory aj1 11:44 Acuity: JAIRO 4 aj1 Triage Assessment: 11:48 General: Appears uncomfortable, Behavior is cooperative, crying. Pain: Complains of aj1 pain in left ear Pain radiates to left jaw Pain currently is 10 out of 10 on a pain scale. Neuro: Level of Consciousness is awake, alert, obeys commands. Cardiovascular: Patient's skin is warm and dry. Respiratory: Airway is patent Respiratory effort is even, unlabored, Respiratory pattern is regular, symmetrical. Historical: - Allergies: 11:48 No Known Allergies; aj1 - Home Meds: 11:48 estradiol 0.5 mg Oral tab 1 tab once daily [Active]; levothyroxine 175 mcg tab 1 tab aj1 once daily [Active]; losartan-hydrochlorothiazide 100-25 mg Oral tab 1 tab once daily [Active]; pantoprazole 40 mg Oral TbEC 1 tab once daily [Active]; metformin 500 mg Oral tab 1 tab daily [Active]; potassium chloride 8 mEq Oral cpER 1 cap once daily [Active]; sertraline 100 mg Oral tab 1 tab once daily [Active]; verapamil 200 mg Oral CPCT 1 cap once daily [Active]; vitamin D92-jijph acid 500-400 mcg Oral tab daily [Active]; - PMHx: 11:48 Diabetes - NIDDM; Hyperlipidemia; Hypertension; Hypothyroidism; aj1 - Immunization history:: Flu vaccine is up to date. - Social history:: Smoking status: Patient/guardian denies using tobacco. - Ebola Screening: : Patient denies travel to an Ebola-affected area in the 21 days before illness onset. Screenin:00 Abuse screen: Denies threats or abuse. Denies injuries from another. Nutritional aj1 screening: No deficits noted. Tuberculosis screening: No symptoms or risk factors identified. 12:00 Fall Risk None identified. hb Assessment: 12:00 General: Appears uncomfortable, Behavior is cooperative, crying. Pain: Complains of aj1 pain in left ear Pain radiates to left jaw Pain currently is 10 out of 10 on a pain scale. Neuro: Level of Consciousness is awake, alert, obeys commands. Cardiovascular: Patient's skin is warm and dry. Respiratory: Airway is patent Respiratory effort is even, unlabored, Respiratory pattern is regular, symmetrical. GI: No signs and/or symptoms were reported involving the gastrointestinal system. : No signs and/or symptoms were reported regarding the genitourinary system. EENT: Reports left ear pain that radiates down to jaw. Derm: No signs and/or symptoms reported regarding the dermatologic system. Skin is pink, warm \T\ dry. normal. Musculoskeletal: No signs and/or symptoms reported regarding the musculoskeletal system. Circulation, motion, and sensation intact. 13:00 Reassessment: Patient appears in no apparent distress at this time. Patient and/or hb family updated on plan of care and expected duration. Pain level reassessed. Patient is alert, oriented x 3, equal unlabored respirations, skin warm/dry/pink. 14:00 Reassessment: Patient appears in no apparent distress at this time. Patient and/or hb family updated on plan of care and expected duration. Pain level reassessed. Patient is alert, oriented x 3, equal unlabored respirations, skin warm/dry/pink. Vital Signs: 11:48 BP 186 / 79; Pulse 85; Resp 18; Temp 96.9; Pulse Ox 96% on R/A; Weight 99.79 kg (R); aj1 Height 5 ft. 5 in. (165.10 cm) (R); Pain 10/10; 13:00 BP 172 / 74; Pulse 82; Resp 15; Pulse Ox 100% on R/A; Pain 6/10; hb 14:30 BP 143 / 66; Pulse 78; Resp 16; Pulse Ox 100% on R/A; Pain 4/10; hb 11:48 Body Mass Index 36.61 (99.79 kg, 165.10 cm) aj1 ED Course: 11:40 Patient arrived in ED. as 11:41 Dionte Tomas is Private Physician. as 11:47 Triage completed. aj1 11:48 Arm band placed on Patient placed in an exam room. aj1 11:51 Dl Méndez PA is PHCP. jr8 11:51 Davide Gallegos MD is Attending Physician. jr8 12:00 Patient has correct armband on for positive identification. Bed in low position. Call aj1 light in reach. Side rails up X 1. Family at bedside. 12:00 No provider procedures requiring assistance completed. aj1 13:35 Diet:. jp3 13:54 Facial Bones W/ Mpr In Process Unspecified. EDMS 14:30 Ciara Hawthorne MD is Referral Physician. jr8 14:53 Patient did not have IV access during this emergency room visit. hb Administered Medications: 12:45 Drug: TORadol 60 mg Route: IM; Site: left gluteus; hb 12:46 Drug: [place] 10 mg-325 mg 1 tabs Route: PO; hb Outcome: 14:30 Discharge ordered by . jr8 14:53 Discharged to home ambulatory, with family. hb 14:53 Condition: stable 14:53 Discharge instructions given to patient, family, Instructed on discharge instructions, follow up and referral plans. medication usage, Demonstrated understanding of instructions, follow-up care, medications, Prescriptions given X 2. 14:54 Patient left the ED. hb Signatures: Dispatcher [employer] EDMS Genie Petersen, RN RN aj1 Clementina Winslow as Dl Méndez PA PA jr8 Ramandeep Lazo, JEREMY RN Sumit Mcgee jp3
== END 2018-05-24 14:54 | disposition home or self-care (01) ==
LOC: ER 11:38
DX: M26.602 Left temporomandibular joint disorder, unspecified (principal); I10 Essential (primary) hypertension; E11.9 Type 2 diabetes mellitus without complications; E78.5 Hyperlipidemia, unspecified; E03.9 Hypothyroidism, unspecified
CPT/HCPCS: 70486; 76377; 96372; 99283

== ENCOUNTER 2018-05-28 10:47 | Day surgery (SDC) | payer MEDICARE ==
--- OUTSIDE RECORDS SUMMARY | 2018-05-28 10:49 | XMS REPORT | Clinical Summary ---
:1940 Author Organization [facility] Address [address] [place] [address] Care Team Providers Name Role Phone Dionte [...] ( Primary Dx); Diarrhea, unspecified type after 05/27/2017 Social History Tobacco Use Types Packs/Day Years Used Date Never Smoker Alcohol Use Drinks/Week oz/Week Comments No Sex Assigned at Date Recorded Not on file Last Filed Vital Signs Vital Sign Reading Time Taken Blood Pressure 142/66 08/18/2017 5:15 PM [employer] Pulse 100 08/18/2017 5:15 PM [employer] Temperature 36.7 C (98 F) 08/18/2017 12:35 PM [employer] Respiratory Rate 18 08/18/2017 5:15 PM [employer] Oxygen Saturation 98% 08/18/2017 5:15 PM [employer] Inhaled Oxygen Concentration - - Weight - - Height 165.1 cm (5' 5") 08/18/2017 12:38 PM [employer] Body Mass Index - - Plan of Treatment Health Maintenance Due Date Last Done Comments SHINGRIX VACCINE (#1) 1990 ZOSTER VACCINE 2000 PNEUMOCOCCAL POLYSACCHARIDE VACCINE AGE 65 AND OVER 2005 PNEUMOCOCCAL-13 2005 INFLUENZA VACCINE 02/28/2018 Procedures Procedure Name Priority Date/Time Associated Comments Diagnosis XR CHEST 2 VW STAT 08/18/2017 3:06 Results for this PM [employer] procedure are in the results section. BLOOD CULTURE, Routine 08/18/2017 2:48 Results for this AEROBIC & ANAEROBIC PM [employer] procedure are in the results section. RESPIRATORY PATHOGEN Routine 08/18/2017 2:47 Results for this PANEL PM [employer] procedure are in the results section. INFLUENZA ANTIGEN Routine 08/18/2017 2:47 Results for this PM [employer] procedure are in the results section. BLOOD CULTURE, Routine 08/18/2017 2:45 Results for this AEROBIC & ANAEROBIC PM [employer] procedure are in the results section. ZZESTIMATED GFR STAT 08/18/2017 2:18 Results for this PM [employer] procedure are in the results section. LIPASE LEVEL STAT 08/18/2017 2:18 Results for this PM [employer] procedure are in the results section. AMYLASE LEVEL STAT 08/18/2017 2:18 Results for this PM [employer] procedure are in the results section. LACTIC ACID LEVEL, STAT 08/18/2017 2:18 Results for this SEPSIS - NOW AND PM [employer] procedure are in REPEAT 2X EVERY 3 the results HOURS section. HEPATIC FUNCTION STAT 08/18/2017 2:18 Results for this PANEL PM [employer] procedure are in the results section. BASIC METABOLIC PANEL STAT 08/18/2017 2:18 Results for this PM [employer] procedure are in the results section. HC COMPLETE BLD COUNT STAT 08/18/2017 2:18 Results for this W/AUTO DIFF PM [employer] procedure are in the results section. after 05/27/2017 Results XR Chest 2 Vw (08/18/2017 3:06 PM) Narrative Performed At EXAMINATION:XR CHEST 2 VW RADIANT CLINICAL HISTORY:Cough, Fever COMPARISON:11/12/2001 TECHNIQUE: Frontal and lateral views of the chest obtained. IMPRESSION: Cardiac silhouette upper normal. Pulmonary vasculature within normal limits. Descending thoracic aorta slightly tortuous. Lungs and pleural spaces appear clear [facility]-[id number] Procedure Note Interface, Radiology Results Incoming - 08/18/2017 3:12 PM [employer] EXAMINATION: XR CHEST 2 VW CLINICAL HISTORY: Cough, Fever COMPARISON: 11/12/2001 TECHNIQUE: Frontal and lateral views of the chest obtained. IMPRESSION: Cardiac silhouette upper normal. Pulmonary vasculature within normal limits. Descending thoracic aorta slightly tortuous. Lungs and pleural spaces appear clear [facility]-[id number] Performing Organization Address [facility] Phone Number [facility] [address] [place] [address] Blood culture, aerobic & anaerobic (08/18/2017 2:48 PM)Only the most recent of2 resultswithin the time period is included. Blood culture isolate No growth after 5 days of incubation. [facility] DEPARTMENT OF Comment: PATHOLOGY AND GENOMIC Specimen Information MEDICINE Specimen Source: Blood Specimen Site: Hand, left Specimen Blood - Hand, left Performing Organization Address City/[facility]/Zipcode Phone Number [facility] DEPARTMENT OF PATHOLOGY AND [address] [place] [phone] GENOMIC MEDICINE Respiratory pathogen panel (08/18/2017 2:47 PM) Respiratory pathogen Negative for all pathogens tested: [facility] DEPARTMENT OF panel Negative for Adenovirus PATHOLOGY [...] Specimen Nares - Right Performing Organization Address [facility] Phone Number [facility] DEPARTMENT OF PATHOLOGY AND [address] [place] [address] Influenza antigen (08/18/2017 2:47 PM) Influenza antigen Negative for Influenza A/B antigen. [facility] DEPARTMENT OF PATHOLOGY Comment: AND [employer] MEDICINE Specimen Information Specimen Source: Nares Specimen Site: Right Specimen Nares - Right Performing Organization Address [facility] Phone Number [facility] DEPARTMENT OF PATHOLOGY AND [address] [place] [address] Lactic acid level, SEPSIS - Now and repeat 2x every 3 hours (08/18/2017 2:18 PM ) Lactic acid 1.3 0.5 - 2.2 mmol/L [facility] DEPARTMENT OF PATHOLOGY AND [facility] Specimen Plasma specimen Performing Organization Address [facility] Phone Number [facility] DEPARTMENT OF PATHOLOGY AND [address] [place] [address] Estimated GFR (08/18/2017 2:18 PM) GFR Non Af Amer 61 mL/min/1.73 m2 [facility] DEPARTMENT OF PATHOLOGY AND GENOMIC MEDICINE GFR Af Amer 74 mL/min/1.73 m2 [facility] DEPARTMENT OF Comment: PATHOLOGY AND GENOMIC Chronic [...] specimen Performing Organization Address City/State/Zipcode Phone Number [facility] DEPARTMENT OF PATHOLOGY AND [address] [place] [phone] GENOMIC MEDICINE CBC with platelet and differential (08/18/2017 2:18 PM) WBC 6.83 4.50 - 11.00 k/uL [facility] DEPARTMENT OF PATHOLOGY AND GENOMIC MEDICINE RBC 4.38 4.20 - 5.50 m/uL [facility] DEPARTMENT OF PATHOLOGY AND GENOMIC MEDICINE HGB 11.2 (L) 12.0 - 16.0 g/dL [facility] DEPARTMENT OF PATHOLOGY AND GENOMIC MEDICINE HCT 34.1 (L) 37.0 - 47.0 % [facility] DEPARTMENT OF PATHOLOGY AND GENOMIC MEDICINE MCV 77.9 (L) 82.0 - 100.0 fL [facility] DEPARTMENT OF PATHOLOGY AND GENOMIC MEDICINE MCH 25.6 (L) 27.0 - 34.0 pg [facility] DEPARTMENT OF PATHOLOGY AND GENOMIC MEDICINE MCHC 32.8 31.0 - 37.0 g/dL [facility] DEPARTMENT OF PATHOLOGY AND GENOMIC MEDICINE RDW - SD 41.3 37.0 - 55.0 fL [facility] DEPARTMENT OF PATHOLOGY AND GENOMIC MEDICINE MPV 9.6 8.8 - 13.2 fL [facility] DEPARTMENT OF PATHOLOGY AND GENOMIC MEDICINE Platelet count 155 150 - 400 k/uL [facility] DEPARTMENT OF PATHOLOGY AND GENOMIC MEDICINE Nucleated RBC 0.00 /100 WBC [facility] DEPARTMENT OF PATHOLOGY AND GENOMIC MEDICINE Neutrophils 65.3 39.0 - 69.0 % [facility] DEPARTMENT OF PATHOLOGY AND GENOMIC MEDICINE Lymphocytes 28.0 25.0 - 45.0 % [facility] DEPARTMENT OF PATHOLOGY AND GENOMIC MEDICINE Monocytes 5.0 0.0 - 10.0 % [facility] DEPARTMENT OF PATHOLOGY AND GENOMIC MEDICINE Eosinophils 0.4 0.0 - 5.0 % [facility] DEPARTMENT OF PATHOLOGY AND GENOMIC MEDICINE Basophils 0.3 0.0 - 1.0 % [facility] DEPARTMENT OF PATHOLOGY AND GENOMIC MEDICINE Immature granulocytes 1.0Comment: 0.0 - 1.0 % [facility] DEPARTMENT OF "Immature PATHOLOGY AND GENOMIC granulocytes" MEDICINE (promyelocytes, myelocytes, metamyelocytes) Specimen Blood Performing Organization Address City/State/Zipcode Phone Number [facility] DEPARTMENT OF PATHOLOGY AND [address] [place] [phone] [place] [address] MEDICINE Lipase level (08/18/2017 2:18 PM) Lipase 24 13 - 60 U/L [facility] DEPARTMENT OF PATHOLOGY AND GENOMIC MEDICINE Specimen Plasma specimen Performing Organization Address [facility] Phone Number [facility] DEPARTMENT OF PATHOLOGY AND [address] [place] [phone] [place] [address] Amylase level (08/18/2017 2:18 PM) Amylase 28 28 - 100 U/L [facility] DEPARTMENT OF PATHOLOGY AND GENOMIC MEDICINE Specimen Plasma specimen Performing Organization Address [facility] Phone Number [facility] DEPARTMENT OF PATHOLOGY AND [address] [place] [address] Hepatic function panel (08/18/2017 2:18 PM) Albumin 3.9 3.5 - 5.0 g/dL [facility] DEPARTMENT OF PATHOLOGY AND GENOMIC MEDICINE Total bilirubin 0.6 0.0 - 1.2 mg/dL [facility] DEPARTMENT OF PATHOLOGY AND GENOMIC MEDICINE Bilirubin direct <0.2 0.0 - 0.3 mg/dL [facility] DEPARTMENT OF PATHOLOGY AND GENOMIC MEDICINE Alkaline phosphatase 61 35 - 104 U/L [facility] DEPARTMENT OF PATHOLOGY AND GENOMIC MEDICINE Protein 8.3 6.3 - 8.3 g/dL [facility] DEPARTMENT OF Comment: PATHOLOGY AND GENOMIC 4.6-7.0 g/dL MEDICINE 1 week 4.4-7.6 g/dL 7 months-1year5.1-7.3 g/dL 1-2 years5.6-7.5 g/dL >3 years6.0-8.0 g/dL 18-150 6.3-8.3 g/dL ALT 26 5 - 50 U/L [facility] DEPARTMENT OF PATHOLOGY AND GENOMIC MEDICINE AST 33 10 - 35 U/L [facility] DEPARTMENT OF PATHOLOGY AND GENOMIC MEDICINE Specimen Plasma specimen Performing Organization Address [facility] Phone Number [facility] DEPARTMENT OF PATHOLOGY AND [address] [place] [address] Basic metabolic panel (08/18/2017 2:18 PM) Sodium 142 135 - 148 mEq/L [facility] DEPARTMENT OF PATHOLOGY AND GENOMIC MEDICINE Potassium 3.2 (L) 3.5 - 5.0 mEq/L [facility] DEPARTMENT OF PATHOLOGY AND GENOMIC MEDICINE Chloride 100 98 - 112 mEq/L [facility] DEPARTMENT OF PATHOLOGY AND GENOMIC MEDICINE CO2 23 (L) 24 - 31 mEq/L [facility] DEPARTMENT OF PATHOLOGY AND GENOMIC MEDICINE Anion gap 19 (H) 7 - 15 mEq/L [facility] DEPARTMENT OF PATHOLOGY Comment: AND [facility] Starting from October , anion gap calculation no longer incorporates potassium. Please note the change. BUN 14 8 - 23 mg/dL [facility] DEPARTMENT OF PATHOLOGY AND GENOMIC MEDICINE Creatinine 0.9 0.5 - 0.9 mg/dL [facility] DEPARTMENT OF PATHOLOGY AND GENOMIC MEDICINE Glucose 133 (H) 65 - 99 mg/dL [facility] DEPARTMENT OF PATHOLOGY AND GENOMIC MEDICINE Calcium 9.0 8.8 - 10.2 mg/dL [facility] DEPARTMENT OF PATHOLOGY AND GENOMIC MEDICINE Specimen Plasma specimen Performing Organization Address City/State/Zipcode Phone Number [facility] DEPARTMENT OF PATHOLOGY AND [address] [place] [address] [facility] MEDICINE after 05/27/2017 Insurance Payer Benefit Plan / Group Subscriber ID Type Phone Address [facility] MEDICARE AARP MEDICARE COMPLETE [facility] xxxxxxxxx O
[2018-05-28] MEDS ORDERED: LIDOCAINE 2% MPF 5 ML VIAL ONE (11:11)
[2018-05-28] MEDS ORDERED: BUPIVACAINE 0.25% PF 10 ML VIAL ONE (11:12)
[2018-05-28] MEDS ORDERED: CYCLOPENTOLATE 1% OPTH 2 ML ONE (11:12)
[2018-05-28] MEDS ORDERED: NA CHLORIDE 0.9% 500 ML ONE (11:12)
[2018-05-28] MEDS ORDERED: TETRACAINE HCL 0.5% 2ML OPTH ONE (11:12)
[2018-05-28] MEDS ORDERED: PHENYLEPHRINE 10% OPTH 5ML ONE (11:14)
[2018-05-28] MEDS ORDERED: LIDOCAINE HCL/PF 3.5% OPTH GEL ONE (11:29)
[2018-05-28] MEDS ORDERED: BALANCED SALT IRRIG PLAIN 500 ML BTL IRR ONE (11:38)
[2018-05-28] MEDS ORDERED: EPINEPHRINE/PF 1 MG/ML AMP ONE (11:38)
[2018-05-28] MEDS ORDERED: DUOVISC 1 KIT OPTH ONE (11:39)
[2018-05-28] MEDS ORDERED: LIDOCAINE 1% MPF 2 ML AMPULE ONE (11:40)
[2018-05-28] MEDS ORDERED: CYCLOPENTOLATE 1% OPTH 2 ML OPTH ONE ×2 (12:00→12:05)
[2018-05-28] MEDS ORDERED: PHENYLEPHRINE 10% OPTH 5ML OPTH ONE ×2 (12:00→12:05)
[2018-05-28] MEDS ORDERED: FENTANYL CITR 100 MCG/2 ML ONE (12:52)
[2018-05-28] MEDS ORDERED: MIDAZOLAM HCL 2 MG/2 ML INJ ONE (12:53)
[2018-05-28] MEDS ORDERED: MOXIFLOXACIN HCL 10 DROPS/ML **OR USE OPTH ONE (13:10)
[2018-05-28] MEDS ORDERED: NS 0.9% VIAL 10 ML ONE (13:12)
--- NOTE | 2018-05-28 13:50 | P.BOP ---
Preoperative diagnosis: Nuclear sclerotic cataract OS Postoperative diagnosis: Same Primary procedure: Phacoemulsification with IOL OS Estimated blood loss: None Anesthesia: Local (Topical with anesthesia for cataract surgery) Complications: None Implants: [id number] +22.5 Transferred to: Other (Day surgery) Condition: Good
--- NOTE | 2018-05-29 00:08 | OP ---
Date of Procedure: 05/28/2018 Surgeon: Tea Viera MD Anesthesiologist: Alpesh Simmons CRNA and Ilia Mcallister M.D. Preoperative Diagnosis: Nuclear sclerotic cataract, left eye. Operation Performed: Phacoemulsification with intraocular lens implant, left eye. Anesthesia: Per cataract surgery. Complications: None. Description Of Procedure: In the operating room, the patient was prepped and draped in the usual marci rile fashion for ophthalmic surgery. A lid speculum was placed in the left eye. Two paracentesis si claudette were made superiorly and inferiorly in the limbal cornea. Viscoat was placed in the anterior fidencio mber and a crescent blade was used to make a corneal groove and tunnel, and a keratome was used to en ter the anterior chamber. Provisc was placed in the anterior chamber and a 360 degree capsulotomy wa s performed with a cystitome. The lens was hydrodissected with BSS and rotated freely. The lens was removed with a stop and chop technique. A 12.01 phaco CDE was used to remove the lens. Residual co rtex was removed with the irrigation and aspiration. Provisc was placed in the capsular bag. A ZCB0 0 +22.5 Lens was placed in the capsular bag without complications. Irrigation and aspiration was use d to remove residual viscoelastic. The paracentesis sites were hydrated with BSS. The wound and par acentesis sites were inspected and found to be watertight. Vigamox 0.07 cc was placed intracamerally at the end of the procedure. The eye was irrigated with balanced salt solution. The eye was patche d with a soft cotton patch and Bridges metal shield. The patient was returned to day surgery in good condition. Comments: Akten was placed in the eye in day surgery and irrigated out of the eye with BSS in the OR . Preservative-free 1% lidocaine was placed in the anterior chamber prior to Viscoat. Discharge Instructions: Torri is discharged to home in good condition and is to follow up with Sergey Viera in the morning. TONI/CONNOR Voice ID: [id number] Report ID: [id number]
== END 2018-05-28 14:22 | disposition home or self-care (01) ==
LOC: OR 10:47
PROVIDERS: ATTEND Ophthalmology Retina Specialist
PROC: 08RK3JZ Replacement of Left Lens with Synthetic Substitute, Percutaneous Approach (ICD-10-PCS; principal; 2018-05-28 11:30)
DX: H25.12 Age-related nuclear cataract, left eye (principal); E11.9 Type 2 diabetes mellitus without complications; I10 Essential (primary) hypertension; E07.9 Disorder of thyroid, unspecified; Z83.511 Family history of glaucoma
CPT/HCPCS: 36415; 66984; 82962; 84132; J0171; J2001; J2250; J3010